=== PATIENT | male | born 1940 | race Asian ===

== ENCOUNTER 2021-10-26 11:35 | Emergency (ER) | payer OTHER ==
[~2021-10-26] VITALS: Ht 167.6 cm; Wt 84.9 kg
[2021-10-26 11:42] VITALS: BP 144/72
--- NOTE | 2021-10-26 11:53 | NUR ---
PATIENT PRESENTS TO ED WITH RIGHT FACIAL SWELLING . PT STATES . DENIES N/V/D; SKIN IS PINK/WARM/DRY; AAOX4 WITH EVEN AND STEADY GAIT; LUNGS CLEAR BL; HR EVEN AND REGULAR; PT DENIES ANY FEVER, CP, SOB, OR COUGH AT THIS TIME; PATIENT STATES PAIN OF 7/10 AT THIS TIME; VSS; PATIENT POSITIONED FOR COMFORT; HOB ELEVATED; BEDRAILS UP X2; BED DOWN. ER MD MADE AWARE OF PT STATUS.
[2021-10-26] MEDS ORDERED: AMOX1TAB8 PO (12:32)
[2021-10-26] MEDS ORDERED: IBUP-2230 PO (12:32)
[2021-10-26 12:44] VITALS: BP 143/83
--- NOTE | 2021-10-26 12:45 | NUR ---
Patient discharged with v/s stable. Written and verbal after care instructions given and explained. Patient alert, oriented and verbalized understanding of instructions. Ambulatory with steady gait. All questions addressed prior to discharge. ID band removed. Patient advised to follow up with PMD. Rx of IBUPROFEN AND AMOX-CLAV 875-125MG TABLETS given. Patient educated on indication of medication including possible reaction and side effects. Opportunity to ask questions provided and answered.
== END 2021-10-26 12:45 | disposition home or self-care (01) ==
LOC: MED 11:35
DX: L03.211 Cellulitis of face (principal); K04.7 Periapical abscess without sinus
CPT/HCPCS: 99283

== ENCOUNTER 2022-08-06 11:22 | Inpatient (IN) | payer OTHER ==
[~2022-08-06] VITALS: Ht 170.2 cm; Wt 78.0 kg
[~2022-08-06 11:22] MED LIST: AMOX1TAB8 PO; IBUP-2230 PO
[2022-08-06 11:33] VITALS: BP 150/83
[2022-08-06] MEDS ORDERED: NACL 0.9% 1,000 ML IV ONE (12:05)
[2022-08-06] MEDS ORDERED: ONDANSETRON 4 MG/2 ML VIAL IVP ONE (12:05)
[2022-08-06 13:09] LABS: BASOPHILS # (AUTO) 0.1 K/uL (0.00-0.22); BASOPHILS % (AUTO) 0.5 % (0.0-2.0); EOSINOPHILS % (AUTO) 0.2 % (0.0-4.0); HEMATOCRIT 38.4 % (36-52); HEMOGLOBIN 12.7 g/dL (12.0-18.0); LYMPHOCYTES # (AUTO) 1.6 K/uL (2.0-11.5); LYMPHOCYTES % (AUTO) 13.6 % (20.5-51.1); MEAN CORPUSCULAR HEMOGLOBIN 30 pg (27-31); MEAN CORPUSCULAR HGB CONC 33 g/dL (33-37); MEAN CORPUSCULAR VOLUME 89.2 fL (80-94); MONOCYTES % (AUTO) 8.5 % (1.7-9.3); NEUTROPHILS # (AUTO) 9.2 K/uL (1.8-7.7); NEUTROPHILS % (AUTO) 77.2 % (42.2-75.2); PLATELET COUNT (AUTO) 217 K/uL (140-450); RED CELL DISTRIBUTION WIDTH 13.6 % (11.6-13.7)
--- NOTE | 2022-08-06 13:23 | NUR ---
PT BIB SON, AOX4 C/O RUQ PAIN W/NAUSEA X 3MTHS. PLACE ON MONITOR, NAD, PENDING DISPO.
[2022-08-06 13:26] LABS: ALBUMIN 3.2 g/dL (3.4-5.0); ANION GAP 10.2 (8-16); ASPARTATE AMINOTRANSFERASE 58 U/L (15-37); CARBON DIOXIDE 28.8 mmol/L (21-32); CHLORIDE 98 mmol/L (98-107); CREATININE 0.8 mg/dL (0.6-1.3); GLUCOSE 108 mg/dL (74-106); LIPASE 108 U/L (73-393); SODIUM SERUM 133 mmol/L (136-145); TOTAL BILIRUBIN 1.3 mg/dL (0.0-1.0); UREA NITROGEN, BLOOD 18 mg/dL (7-18)
[2022-08-06 14:01] LABS: BILIRUBIN,URINE NEGATIVE (NEGATIVE); BLOOD, URINE TRACE-I (NEGATIVE); LEUKOCYTE ESTERASE ,URINE NEGATIVE (NEGATIVE); NITRITE, URINE NEGATIVE (NEGATIVE); PH,URINE 6.5 (5.0-9.0); UGLUCOSE TRACE (NEGATIVE)
[2022-08-06] MEDS ORDERED: LORazepam 1 MG TAB PO PRN (14:05)
[2022-08-06] MEDS ORDERED: ACETAMINOPHEN 325 MG TAB PO PRN (14:05)
[2022-08-06] MEDS ORDERED: ONDANSETRON 4 MG/2 ML VIAL IVP PRN (14:05)
[2022-08-06] MEDS ORDERED: ZOLPIDEM 5 MG TAB PO PRN (14:05)
[2022-08-06] MEDS ORDERED: MORPHINE SULFATE 4 MG/ML SYR IVP PRN (14:05)
[2022-08-06] MEDS ORDERED: KCL 20 MEQ IN 100 mL PREMIX 200 ML IV PRN (14:05)
[2022-08-06] MEDS ORDERED: POTASSIUM CHLORIDE 10 MEQ TABER PO PRN (14:05)
[2022-08-06] MEDS ORDERED: MAG SULF 2000 MG/WATER PREMIX 50 ML IV PRN (14:05)
[2022-08-06] MEDS ORDERED: HYDROcodone/APAP 5/325 MG 1 TAB TAB PO PRN (14:05)
[2022-08-06 14:19] LABS: CALCIUM OXALATE CRYSTALS,UR 0-10 /HPF (None Seen)
[2022-08-06 14:20] LABS: URIC ACID CRYSTALS,URINE 0-10 /HPF (None Seen)
[2022-08-06 14:21] LABS: APPEARANCE,URINE CLOUDY (CLEAR); COLOR,URINE ORANGE (YELLOW)
[2022-08-06] MEDS: NACL 0.9% 1,000 ML IV SCH (14:37)
--- NOTE | 2022-08-06 15:50 | NUR ---
Patient will be admitted to care of DR PADILLA. Admited to MED SURG. Will go to room 108A . Belongings list completed. Report to CHANELLE.
[2022-08-06 15:52] VITALS: BP 113/66
[2022-08-06 20:00] VITALS: BP 92/54
--- NOTE | 2022-08-06 20:00 | NUR ---
PM NURSING NARRATIVE (OPENING) HAND-OFF REPORT RECEIVED FROM MILLICENT RN WITH BEDSIDE ROUNDS AND INTRODUCTION OF NEW PM NURSE @ 1920. PT RECEIVED RESTING IN BED AND EASILY AROUSES BY NAME. USING GOOGLE TRANSLATE TO COMMUNICATE EASILY. DX: PANCREATIC MASS. DENIES ABDOMINAL PAIN. ABD SOFT. NS@80ML/HR TO LAC VIA 20GA. REPORTED NPO AFTER MIDNIGHT FOR CT GUIDE BIOPSY. ALSO REPORTED CT OF OF ABD/PELVIS WITH PANCREATIC MASS/LIVER MASS AND CT OF CHEST WITH MULTIPLE NODULES. EKG NSR. CONSENT TO BE OBTAINED FOR PROCEDURE. CONTINUE TO MONITOR AND MEDS ORDERED. PT VERY CORDIAL WITH AN EXTREMELY ALTHEA DISPOSITION.
[2022-08-06] MEDS: SENNA 8.6 MG TAB PO SCH (22:12)
--- NOTE | 2022-08-06 23:00 | NUR ---
INFORMED BY CHARGE NURSE BIOPSY CANCELLED FOR TOMORROW. VERIFIED IN ORDERS.
--- NOTE | 2022-08-07 00:30 | NUR ---
BRP. 1 BM. CONTINUES TO DENY ABD PAIN. NO NAUSEA. BACK TO BED.
[2022-08-07] MEDS: NACL 0.9% 1,000 ML IV SCH (02:35)
[2022-08-07 04:00] VITALS: BP 106/53
[2022-08-07 06:40] LABS: BASOPHILS # (AUTO) 0.1 K/uL (0.00-0.22); BASOPHILS % (AUTO) 0.5 % (0.0-2.0); EOSINOPHILS % (AUTO) 0.4 % (0.0-4.0); HEMATOCRIT 36.1 % (36-52); HEMOGLOBIN 11.9 g/dL (12.0-18.0); LYMPHOCYTES # (AUTO) 2.4 K/uL (2.0-11.5); LYMPHOCYTES % (AUTO) 21.2 % (20.5-51.1); MEAN CORPUSCULAR HEMOGLOBIN 30 pg (27-31); MEAN CORPUSCULAR HGB CONC 33 g/dL (33-37); MONOCYTES # (AUTO) 1.1 K/uL (0.8-1.0); MONOCYTES % (AUTO) 9.7 % (1.7-9.3); NEUTROPHILS # (AUTO) 7.6 K/uL (1.8-7.7); NEUTROPHILS % (AUTO) 68.2 % (42.2-75.2); PLATELET COUNT (AUTO) 209 K/uL (140-450); RED BLOOD CELL COUNT(AUTO) 4.05 MIL/uL (4.20-6.10); RED CELL DISTRIBUTION WIDTH 13.8 % (11.6-13.7); WHITE BLOOD COUNT (AUTO) 11.1 K/uL (4.8-10.8)
[2022-08-07 07:01] LABS: CARBON DIOXIDE 28.4 mmol/L (21-32); CREATININE 0.8 mg/dL (0.6-1.3); GLUCOSE 92 mg/dL (74-106); UREA NITROGEN, BLOOD 17 mg/dL (7-18)
[2022-08-07 07:28] LABS: ANION GAP 12.8 (8-16); CHLORIDE 98 mmol/L (98-107); POTASSIUM 4.2 mmol/L (3.5-5.1); SODIUM SERUM 135 mmol/L (136-145)
--- NOTE | 2022-08-07 07:30 | NUR ---
PM NURSING NARRATIVE (CLOSING) HAND-OFF REPORT TO ON-COMING NURSE CARLIN RN FOR CONTINUITY OF CARE. REPORTED BIOPSY CANCELLED FOR THIS A.M WITH ONCOLOGY FOLLOW-UP PENDING. PM SHIFT PT DENIES ABD PAIN. NAUSEA BAG AT BEDSIDE WITH MINIMAL/SCANT WHITE SPUTUM. IV FLUIDS NS @80 AND REMAINS NPO STATUS. RELINQUISHED CARE OF PT AT THIS TIME.
[2022-08-07 08:00] VITALS: BP 93/59
[2022-08-07] MEDS ORDERED: SENN-74 PO (08:26)
[2022-08-07] MEDS ORDERED: ACET-5629 PO (08:26)
--- NOTE | 2022-08-07 09:12 | NUR ---
PATIENT HAS BEEN SCREENED AND CATEGORIZED HIGH NUTRITION RISK. PATIENT WILL BE SEEN WITHIN 1-2 DAYS OF ADMISSION. FNS REFERRAL RECEIVED FOR NAUSEA OVER 3 DAYS AND WEIGHT LOSS OF 14-23 LBS. [id number]
[2022-08-07] MEDS: SENNA 8.6 MG TAB PO SCH (09:46)
[2022-08-07 12:14] VITALS: BP 93/59
--- NOTE | 2022-08-07 12:53 | NUR ---
08/07/22 RD INITIAL ASSESSMENT COMPLETED PLEASE REFER TO NUTRITION ASSESSMENT UNDER CARE ACTIVITY FOR ESTIMATED NUTRITIONAL NEEDS. 1. CONTINUE REGULAR DIET TOLERATED 2. RD RECOMMENDS TO ADD ENSURE ENLIVE TID OR TOLERATED TO HELP WITH ORAL INTAKE AND WEIGHT GAIN. 3. RD TO FOLLOW-UP 2-3 DAYS, HIGH RISK [address]
--- NOTE | 2022-08-07 12:58 | NUR ---
DISCHARGE PATIENT IN STABLE CONDITION PER PCP ORDER, DISCHARGE INSTRUCTION GIVE, DISCHARGE CONSENT SIGN, IV ACCESS & WRIST BAND REMOVE. PATIENT WHEEL OUT WITH FAMILY ACCOMPANY AND CHAIRSIDE
--- NOTE | 2022-08-08 08:53 | NUR ---
CALLED DR [facility] LOCATED AT [address] [place] [address]. SPOKE WITH FERNANDA WHO HELPED ME ARRANGE FOLLOW UP APPOINTMENT FOR 08/12/2022 AT 1045. CALLED SON RONN AND INFORMED HIM OF THE ABOVE INFORMATION.
== END 2022-08-07 12:59 | disposition home or self-care (01) | DRG 281 ==
LOC: MED 11:22 → INTOOBSV 14:10 → MTU 14:10 → OBSVTOIN 14:10 → MTU 15:37
PROVIDERS: ADMIT Internal Medicine; ATTEND Internal Medicine
DX: C25.2 Malignant neoplasm of tail of pancreas (principal); E44.0 Moderate protein-calorie malnutrition; C78.7 Secondary malignant neoplasm of liver and intrahepatic bile duct; C78.00 Secondary malignant neoplasm of unspecified lung; E87.1 Hypo-osmolality and hyponatremia; D72.829 Elevated white blood cell count, unspecified; Z68.26 Body mass index [BMI] 26.0-26.9, adult; I10 Essential (primary) hypertension; Z20.822 Contact with and (suspected) exposure to COVID-19
CPT/HCPCS: 36415; 71250; 80048; 80053; 81001; 82378; 83690; 83735; 84484; 85025; 86301; 87081; 93005; 96361; 96374; 99285; J2405